=== PATIENT | female | born 1955 | race African-American/Black ===

== ENCOUNTER → 2022-02-28 | Outpatient (CLI) | payer MEDICARE ==
--- NOTE | 2022-02-28 15:26 | Diagnostic Imaging Report ---
PROCEDURE: MRI lumbar spine. TECHNIQUE: Multiplanar, multisequence MRI of the lumbar spine was performed without contrast. INDICATION: Lower back pain. COMPARISON: None FINDINGS: For the purposes of this exam, last well-formed disc space is noted the L5-S1 level. Static alignment of the lumbar spine is maintained. There is no significant anterolisthesis or retrolisthesis. There is no evidence of jumped facets. Vertebral body heights are maintained. No acute fracture is seen. Evaluation marrow signal demonstrates multilevel endplate Modic changes. There is also mild multilevel intervertebral disc height loss as well as multilevel anterior and posterior disc bulges. Visualized portions of distal cord are unremarkable. Conus terminates approximately the L1 level. No abnormal intrathecal filling defects are seen. Pre and paravertebral soft tissue structures are unremarkable. Axial images demonstrate the following: T12-L1: There is asymmetric left-sided facet arthropathy, but no significant spinal canal or neural foraminal stenosis. L1-L2: There is slight broad-based posterior disc bulge and bilateral facet arthropathy. As a result, there is mild narrowing of spinal canal and bilateral neural foramen. L2-L3: There is broad-based posterior disc bulge with bilateral ligamentum flavum laxity and facet arthropathy. As a result, there is [id number] narrowing of the spinal canal and mild narrowing of bilateral neural foramen. L3-L4: There is broad-based posterior disc bulge with bilateral ligamentum flavum laxity and facet arthropathy. As a result, there is moderate stenosis of the spinal canal and bilateral neural foramen. L4-L5: There is prominent central posterior disc protrusion superimposed on broad-based posterior disc bulge. There is also prominent bilateral ligamentum flavum laxity and facet arthropathy. As a result, there is severe spinal canal stenosis. Thecal sac is narrowed to approximately 4 mm. There is also moderate stenosis of bilateral neural foramen. L5-S1: There is slight broad-based posterior disc bulge with bilateral facet arthropathy, but no significant spinal canal stenosis is seen. There is mild narrowing of bilateral neural foramen. IMPRESSION: 1. Multilevel degenerative changes of the lumbar spine greatest the L4-L5 level as described above. 2. No acute fracture or dislocation. Dictated by: Dictated on workstation # [id number]
== END ==
LOC: RAD 12:36
PROVIDERS: ATTEND Family Medicine
DX: M47.817 Spondylosis without myelopathy or radiculopathy, lumbosacral region (principal); M51.27 Other intervertebral disc displacement, lumbosacral region; M48.07 Spinal stenosis, lumbosacral region; M47.815 Spondylosis without myelopathy or radiculopathy, thoracolumbar region
CPT/HCPCS: 72148